=== PATIENT | female | born 1980 | race Caucasian/White ===

== ENCOUNTER 2021-10-02 08:58 | Day surgery (SDC) | payer OTHER ==
[~2021-10-02 08:58] MED LIST: CLARITIN10 M1 PO; PRENATABS FA TA1 TAB PO; TROKENDI XR50 MG
[2021-10-02] MEDS ORDERED: MORGIDOX100 MG PO (10:50)
[2021-10-02] MEDS ORDERED: NAPR500T14 PO (10:50)
== END 2021-10-02 15:50 | disposition home or self-care (01) ==
LOC: CIR.AMB 08:58
PROVIDERS: ATTEND Obstetrics & Gynecology
DX: D25.0 Submucous leiomyoma of uterus (principal); N84.0 Polyp of corpus uteri; Z20.822 Contact with and (suspected) exposure to COVID-19